=== PATIENT | male | born 1950 | race Caucasian/White ===

== ENCOUNTER 2020-10-20 17:24 | Observation (INO) ==
[2020-10-20] MEDS ORDERED: Aspirin 325 MG TABLET PO ONE (17:54)
[2020-10-20 18:01] LABS: Basophils % 0.7 %; Eosinophils # 0.2 K/mcL (0.0-0.6); Eosinophils % 2.7 %; Hematocrit 34.9 % (37.5-50.1); Hemoglobin 11.4 g/dL (12.9-16.9); Immature Granulocytes % 0.3 % (0-4); Lymphocytes # 1.7 K/mcL (0.6-4.6); Mean Corpuscular HGB Conc 32.7 g/dL (31.6-35.5); Mean Corpuscular Hemoglobin 26.3 pg (28.0-33.3); Mean Corpuscular Volume 80.4 fL (83.0-100.0); Mean Platelet Volume 10.4 fL (9.4-12.4); Monocytes # 0.8 K/mcL (0.0-1.3); Monocytes % 12.7 %; Neutrophils # 3.3 K/mcL (1.6-8.9); Platelet Count 373 K/mcL (140-400); Red Blood Count 4.34 M/mcL (4.19-5.50); Red Cell Distribution Width 17.5 % (11.5-14.5); Segmented Neutrophils % 55.6 %
[2020-10-20 18:07] LABS: Activated Partial Thrombo Time 37.6 Seconds (26.0-36.0)
[2020-10-20 18:13] LABS: BUN/Creatinine Ratio 25 (6-26); Blood Urea Nitrogen 24 mg/dL (8-23); Calcium 9.2 mg/dL (8.6-10.3); Carbon Dioxide 23 mEq/L (23-29); Chloride 106 mEq/L (98-107); Glucose 134 mg/dL (70-105); Osmolality,Calculated 292 (280-300); Potassium 4.1 mEq/L (3.5-5.1); Sodium 138 mEq/L (136-145); eGFR For African Americans > 60 (> 60); eGFR For Non-African Americans > 60 (> 60)
[2020-10-20 18:21] LABS: INR 1.2; Prothrombin Time 13.4 Seconds (9.4-12.1)
[2020-10-20] MEDS ORDERED: Isovue-370 500 ML BOTTLE IVP ONE (18:59)
[2020-10-20] MEDS ORDERED: Naloxone 0.4 MG/ML INJ IVP PRN (21:38)
[2020-10-20 21:54] VITALS: TEMP 97.9
[2020-10-20] MEDS ORDERED: Melatonin 3 MG TABLET PO PRN (22:50)
[2020-10-21 07:00] VITALS: BP 102/69; PULSE 81; RESP 18; O2SAT 97
[2020-10-21] MEDS ORDERED: Metoprolol XL (24 HR) Succ 25 MG TAB.ER.24H PO SCH (09:00)
[2020-10-21] MEDS ORDERED: Aspirin Enteric Coated 81 MG Tablet PO SCH (09:00)
[2020-10-21] MEDS ORDERED: Folic Acid 1 MG TABLET PO SCH (09:00)
[2020-10-23] MEDS ORDERED: *HR* Methotrexate 2.5 MG TABLET PO SCH (09:00)
== END 2020-10-21 10:56 | disposition home or self-care (01) ==
LOC: INPPIK 17:24 → EMEROOPIK 17:24 → INPPIK 21:37
PROVIDERS: ADMIT Family Medicine; ATTEND Family Medicine